=== PATIENT | female | born 1995 | race Caucasian/White ===

== ENCOUNTER 2020-04-16 21:17 | Emergency (ER) | payer OTHER ==
--- OUTSIDE RECORDS SUMMARY | 2020-04-16 21:24 | XMS ---
:1995 Author Organization [facility] Care Team Providers Name Role Phone KYLEE Unavailable Unavailable Re-disclosure Warning The records that you are about to access may contain information from federally- assisted alcohol or drug abuse programs. If such information is present, then the following federally mandated warning applies: This information has been disclosed to you from records protected by federal confidentiality rules (42 CFR part 2). The federal rules prohibit you from making any further disclosure of this information unless further disclosure is expressly permitted by the written consent of the person to whom it pertains or as otherwise permitted by 42 CFR part 2. A general authorization for the release of medical or other information is NOT sufficient for this purpose. The Federal rules restrict any use of the information to criminally investigate or prosecute any alcohol or drug abuse patient.The records that you are about to access may contain highly sensitive health information, the redisclosure of which is protected by Article 27-F of the [facility] Public Health law. If you continue you may haveaccess to information: Regarding HIV / AIDS; Provided by facilities licensed or operated by the [facility] Office of Mental Health; or Provided by the [facility] Office for People With Developmental Disabilities. If such information is present, then the following [facility] mandated warning applies: This information has been disclosed to you from confidential records which are protected by state law. State law prohibits you from making any further disclosure of this information without the specific written consent of the person to whom it pertains, or as otherwise permitted by law. Any unauthorized further disclosure in violation of state law may result in a fine or assisted sentence or both. A general authorization for the release of medical or other information is NOT sufficient authorization for further disclosure. Encounters Encounter Providers Location Date Indications Data Source(s ) Outpatient Attender: 01/18/2020 Z01.84 [facility] [place] KARAdmitter: 11:38:00 AM Health Care KARReferrer: KYLEE [employer]T [employer] Z01.84 Insurance Providers Payer name Policy type Policy ID Covered Covered alliance party's Policy P win[employer]red / Coverage alliance party ID relationship to [facility] type mead SELF PAY SP INSURANCE Problems, Conditions, and Diagnoses Code Display Name Description Problem Type Effective Dates Data Source(s) Z01.84 Encounter for ENCOUNTER FOR Diagnosis 01/18/2020 [facility] antibody response ANTIBODY RESPONSE 11:38:00 AM EDT [facility] examination EXAMINATION Care Corpora tion
[2020-04-16] MEDS ORDERED: MECLIZINE HCL 25 MG TABLET (FP) ONE (21:31)
--- NOTE | 2020-04-16 21:34 | PDOC ---
History of Present Illness - General Chief Complaint: Lightheaded Stated Complaint: DIZZY ALL DAY/ Time Seen by Provider: 04/16/20 21:19 History Source: Patient Exam Limitations: No Limitations - History of Present Illness Initial Comments: 04/16/20 22:14 This is a 24-year-old female who comes in complaining of vertigo type symptoms. Patient said she has been busy with vertigo all day. Patient is 24 weeks and is concerned because she is with the dizziness. Patient does admit to having seasonal allergies but denies a history of vertigo. Patient did not take anything for her dizziness. Patient denies headache, neck pain, nausea vomiting or diarrhea. Patient denies fevers or chills. Allergies: as per nursing notes Past Medical History: none Social history: Lives with family. No smoking. No alcohol. No illicit drugs. Surgical history: None General: No fevers or chills, no weakness, no weight loss HEENT: No change in vision. No sore throat,. No ear pain CardioVascular: no chest discomfort. No shortness of breath Respiratory:No cough, or wheezing. Gastrointestinal: no nausea, vomiting, diarrhea or constipation, No rectal bleeding Genitourinary: No dysuria, hematuria, or frequency Musculoskeletal: No joint or muscle pain or swelling Neurologic: No headache, + vertigo, dizziness no loss of consciousness Psychiatric: nor depression Skin: No rashes or easy bruising Endocrine: no increased thirst or abnormal weight change Allergic: no skin or latex allergy All other systems reviewed and normal GENERAL: The patient is awake, alert, and fully oriented, in no acute distress. HEENT:Head is normal with no signs of trauma. Eyes: Pupils equal, round and reactive to light, Ears, and Throat are normal. Neck is supple. No L ymphadenopathy. EXTREMITIES:atraumatic, Normal range of motion, no edema. NEUROLOGICAL: Normal speech, normal gait. PSYCH: Normal mood, normal affect. SKIN: Warm, Dry, normal turgor, no rashes or lesions noted. Patient symptoms most likely are related to labyrinthitis secondary to her seasonal allergies. Patient given meclizine with improvement of her symptoms and discharged home. Patient will follow-up with her primary care doctor. Past History - Medical History Allergies/Adverse Reactions: Allergies Allergy/AdvReac Type Severity Reaction Status Date / Time No Known Allergies Allergy Verified 04/16/20 21:35 Home Medications: Ambulatory Orders Meclizine HCl [Antivert -] 25 mg PO QID #30 tablet 04/16/20 Discharge - Discharge Information Problems reviewed: Yes Clinical Impression/Diagnosis: Vertigo Condition: Stable Disposition: HOME - Admission No - Additional Discharge Information Prescriptions: Meclizine HCl [Antivert -] 25 mg PO QID #30 tablet - Follow up/Referral - Patient Discharge Instructions Additional Instructions: For the vertigo take meclizine 1 tablet as often as every 6 hours or times a day as needed. Return to the emergency department immediately with ANY new, persistent or worse aneta symptoms. Continue any medications as previously prescribed by your physician. You should follow up with your primary doctor as soon as possible regarding today's emergency department visit. . Please make sure your doctor reviews the results of your emergency evaluation. Thank you for coming to the Emergency Department today for your care. It was a pleasure to see you today. Please note that your evaluation is INCOMPLETE until you follow-up with your doctor. - Post Discharge Activity
[2020-04-16 21:41] VITALS: BP 111/56; PULSE 94; TEMP 97.8; BMI 25.8
[2020-04-16] MEDS ORDERED: MECLIZINE HCL 25 MG TABLET (FP) PO ONE (21:42)
== END 2020-04-16 21:54 | disposition home or self-care (01) ==
LOC: FER 21:17
DX: H81.10 Benign paroxysmal vertigo, unspecified ear (principal)
CPT/HCPCS: 99283-25